=== PATIENT | female | born 1960 | race Caucasian/White ===

== ENCOUNTER → 2019-03-19 | Outpatient (CLI) | payer BC ==
--- NOTE | 2019-03-20 10:21 | MM ---
Reason for exam: screening (asymptomatic). Last mammogram was performed 2 years and 1 month ago. History: Patient is postmenopausal. Physical Findings: A clinical breast exam by your physician is recommended on an annual basis and results should be correlated with mammographic findings. MG Screening Mammo w CAD Bilateral CC and MLO view(s) were taken. XCCL view(s) were taken of the right breast. Prior study comparison: February 17, 2017, bilateral MG screening mammo w CAD. August 22, 2014, bilateral MG screening mammo w CAD. There are scattered fibroglandular densities. There is no discrete abnormality. No significant changes when compared with prior studies. ASSESSMENT: Negative, BI-RAD 1 RECOMMENDATION: Routine screening mammogram of both breasts in 1 year.
== END | disposition home or self-care (01) ==
LOC: RADMAMWWP 07:30
PROVIDERS: ATTEND Family Medicine
DX: Z12.31 Encounter for screening mammogram for malignant neoplasm of breast (principal)
CPT/HCPCS: 77067

== ENCOUNTER → 2021-03-04 | Outpatient (CLI) | payer BC ==
--- NOTE | 2021-03-05 11:44 | MM ---
Reason for exam: screening (asymptomatic). Last mammogram was performed 1 year and 11 months ago. History: Patient is postmenopausal. Took hormonal contraceptives for 5 years. Physical Findings: A clinical breast exam by your physician is recommended on an annual basis and results should be correlated with mammographic findings. MG Screening Mammo w CAD Bilateral CC and MLO view(s) were taken. Prior study comparison: March 19, 2019, bilateral MG screening mammo w CAD. February 17, 2017, bilateral MG screening mammo w CAD. There are scattered fibroglandular densities. There are benign appearing round calcifications bilaterally. There is no discrete abnormality. ASSESSMENT: Benign, BI-RAD 2 RECOMMENDATION: Routine screening mammogram of both breasts in 1 year.
== END | disposition home or self-care (01) ==
LOC: RADMAMWWP 08:42
PROVIDERS: ATTEND Family Medicine
DX: Z12.31 Encounter for screening mammogram for malignant neoplasm of breast (principal)
CPT/HCPCS: 77067

== ENCOUNTER → 2021-05-03 | Outpatient (CLI) | payer BC ==
--- NOTE | 2021-05-03 16:11 | XR ---
Left knee HISTORY: Left knee pain, fall 2 days prior 3 views the left knee Suprapatellar increased density suggests joint effusion. There is some spurring at the patellofemoral joint. Soft tissue swelling is noted. Vascular calcifications are present. Mild joint space loss in the medial compartment. Bone mineralization is mildly reduced. Alignment is maintained. Question some chondrocalcinosis. IMPRESSION: No acute fracture or dislocation, consider crystal deposition arthropathy, osteoarthritis , joint effusion, soft tissue swelling
== END | disposition home or self-care (01) ==
LOC: RADXRYALE 15:53
PROVIDERS: ATTEND Physician Assistant
DX: M25.562 Pain in left knee (principal); W19.XXXA Unspecified fall, initial encounter

== ENCOUNTER → 2022-10-12 | Outpatient (CLI) | payer BC ==
--- NOTE | 2022-10-12 10:51 | XR ---
EXAMINATION TYPE: XR knee complete RT DATE OF EXAM: 10/12/2022 10:30 AM INDICATION: Patient age:Female; 62 years old; Reason for study: [id number] RT KNEE PAIN; COMPARISON: None. TECHNIQUE: The Right knee(s) was examined in Frontal, lateral and oblique projections. FINDINGS: No evidence of any acute osseous pathology, soft tissue swelling, or joint effusion is no karyn. Minimal osteophyte formation and tibial plateau and patella. Atherosclerosis of the arteriovascular. IMPRESSION: 1. No acute osseous pathology. 2. Mild tricompartmental osteoarthritic changes.
== END | disposition home or self-care (01) ==
LOC: RADXRYALE 09:07
PROVIDERS: ATTEND Physician Assistant
DX: M17.11 Unilateral primary osteoarthritis, right knee (principal)

== ENCOUNTER → 2024-07-24 | Outpatient (CLI) | payer BC ==
--- NOTE | 2024-07-24 11:44 | MM ---
Reason for Exam: Screening (asymptomatic). Last mammogram was performed 3 year(s) and 5 month(s) ago. Patient History: Menarche at age 12. First Full-Term at age 20. Postmenopausal. Patient used Hormonal Contraceptives for 5 years. Risk Values: Trixie 5 year model risk: 1.2%. NCI Lifetime model risk: 5.3%. Prior Study Comparison: 02/17/2017 Bilateral Screening Mammogram, [facility]. 03/19/2019 Bilateral Screening Mammogram, [facility]. 03/04/2021 Bilateral Screening Mammogram, [facility]. Tissue Density: There are scattered areas of fibroglandular density. Findings: Analyzed By CAD. There is no suspicious group of microcalcifications or new suspicious mass in either breast. Overall Assessment: Negative, BI-RAD 1 Management: Screening Mammogram of both breasts in 1 year. Patient should continue monthly self-breast exams. A clinical breast exam by your physician is recommended on an annual basis. This exam should not preclude additional follow-up of suspicious palpable abnormalities. Note on Trixie scores and lifetime risk: 1. A Trixie score greater than 3% is considered moderate risk. If this is the case, consider specialist referral to assess eligibility for a risk reducing agent. 2. If overall lifetime risk for the development of breast cancer is 20% or higher, the patient may qualify for future screening with alternating mammogram and breast MRI. [facility], , 07/24/2024 11:39 AM. Electronically signed and approved by: Billy Esparza M.D. Radiologist
== END | disposition home or self-care (01) ==
LOC: RADMAMWWP 08:36
PROVIDERS: ATTEND Family Medicine
DX: Z12.31 Encounter for screening mammogram for malignant neoplasm of breast (principal); R92.323 Mammographic fibroglandular density, bilateral breasts; Z78.0 Asymptomatic menopausal state; Z92.0 Personal history of contraception
CPT/HCPCS: 77067